=== PATIENT | female | born 1995 | race African-American/Black ===

== ENCOUNTER 2018-12-05 19:50 | Observation (INO) | payer SELFPAY ==
[~2018-12-05] VITALS: Ht 162.6 cm; Wt 53.5 kg
[2018-12-05] MEDS ORDERED: LACTATED RINGERS 1,000 ML IV SCH ×2 (21:05→23:30)
[2018-12-05 21:25] LABS: CLARITY URINE CLOUDY (CLEAR); COLOR URINE YELLOW (YELLOW); KETONES URINE 1+ (NEGATIVE); LEUKOCYTE ESTERASE URINE 3+ (NEGATIVE); NITRITE URINE POSITIVE (NEGATIVE); OCCULT BLOOD URINE TRACE (NEGATIVE); PH URINE 7.5 (4.5-8.0); PROTEIN URINE 1+ (NEGATIVE); SPECIFIC GRAVITY URINE 1.013 (1.005-1.030)
[2018-12-05 21:44] LABS: *BARBITURATES SCREEN URINE NEGATIVE (NEGATIVE); *COCAINE SCREEN URINE NEGATIVE (NEGATIVE); METHADONE URINE SCREEN NEGATIVE (NEGATIVE); OPIATES URINE SCREEN NEGATIVE (NEGATIVE); PHENCYCLIDINE URINE SCREEN NEGATIVE (NEGATIVE)
[2018-12-05 21:46] LABS: *BENZODIAZEPINES SCREEN URINE NEGATIVE (NEGATIVE)
[2018-12-05 21:49] LABS: *AMPHETAMINES SCREEN URINE PRESUMTIVE POSITIVE (NEGATIVE)
[2018-12-05 21:50] LABS: CANNABINOID URINE SCREEN PRESUMTIVE POSITIVE (NEGATIVE)
[2018-12-05 21:56] LABS: BASOPHILS % 0.3 % (0.0-2.0); EOSINOPHILS % 0.2 % (0.0-5.0); HEMATOCRIT. 24.4 % (36.0-48.0); HEMOGLOBIN. 7.5 g/dL (12.0-16.0); LYMPHOCYTES % 8.9 % (20.0-50.0); MEAN CORPUSCULAR VOLUME 61.9 fL (81.0-99.0); MEAN PLATELET VOLUME 7.1 fl (7.4-10.4); MONOCYTES % 4.8 % (2.0-8.0); NEUTROPHILS % 85.8 % (40.0-76.0); PLATELET 540 x1000/uL (130-400); RED BLOOD CELL COUNT 3.94 mill/uL (4.2-5.4); RED CELL DISTRIBUTION WIDTH 18.8 % (11.6-14.6)
[2018-12-05] MEDS ORDERED: FERR325T6 MT (21:59)
[2018-12-05] MEDS ORDERED: PNV1TABL50 MT (21:59)
[2018-12-05 22:00] LABS: CHLORIDE 102 mEq/L (98-107)
[2018-12-05 22:14] LABS: PLATELET ESTIMATE MARKEDLY INCREASED
[2018-12-05] MEDS ORDERED: CEFAZOLIN 2,000 MG in DEXT 5% WATER 100 ML IV SCH (23:00)
[2018-12-05] MEDS ORDERED: ACETAMINOPHEN 500MG TABLET PO SCH (23:45)
[2018-12-11 04:08] LABS: AMPHETAMINE CONF URINE Positive (.); CANNABINOID CONFIRMATION URINE Positive (.)
== END 2018-12-06 01:30 | disposition home or self-care (01) ==
LOC: 8 EST LDRP 19:50
PROVIDERS: ADMIT Obstetrics & Gynecology; ATTEND Obstetrics & Gynecology
DX: O26.893 Other specified pregnancy related conditions, third trimester (principal); M54.9 Dorsalgia, unspecified; Z3A.38 38 weeks gestation of pregnancy
CPT/HCPCS: 36415; 80053; 80305; 80307; 80349; 81003; 85025; 87077; 87086; 87186; 96365; 99281; G0378; J0690; J7060; 96360; 96361

== ENCOUNTER 2019-02-28 06:51 | Inpatient (IN) | payer SELFPAY ==
[~2019-02-28] VITALS: Ht 162.6 cm; Wt 65.8 kg
[~2019-02-28 06:51] MED LIST: FERR325T6 MT; PNV1TABL50 MT
[2019-02-28] MEDS ORDERED: METHYLERGONOVINE MALEATE 0.2 MG/ML IM PRN (07:30)
[2019-02-28] MEDS ORDERED: BUTORPHANOL TARTRATE 2 MG/ML VIAL IV PRN (07:30)
[2019-02-28] MEDS ORDERED: CARBOPROST TROMETHAMINE 250 MCG/ML AMPUL IM PRN (07:30)
[2019-02-28] MEDS ORDERED: MISOPROSTOL 100MCG TABLET VG PRN (07:30)
[2019-02-28] MEDS ORDERED: LIDOCAINE HCL 1% 20ML VIAL (Pyxis) INJ INFIL PRN (07:30)
[2019-02-28] MEDS ORDERED: PROMETHAZINE HCL 25MG TABLET PO PRN (08:00)
[2019-02-28] MEDS: LACTATED RINGERS 1,000 ML IV SCH ×4 (08:10→22:28)
[2019-02-28 09:00] LABS: BASOPHILS % 0.3 % (0.0-2.0); EOSINOPHILS % 0.4 % (0.0-5.0); HEMATOCRIT. 22.5 % (36.0-48.0); INR 0.9; MEAN CORPUSCULAR HEMOGLOBIN 16.3 pg (28.0-32.0); MEAN CORPUSCULAR VOLUME 55.6 fL (81.0-99.0); MEAN PLATELET VOLUME 9.1 fl (7.4-10.4); MONOCYTES % 4.1 % (2.0-8.0); NEUTROPHILS % 73.2 % (40.0-76.0); PARTIAL THROMBOPLASTIN TIME 28.4 sec (23.4-31.0); PLATELET 411 x1000/uL (130-400); PROTHROMBIN TIME 9.8 sec (9.6-11.0); RED BLOOD CELL COUNT 4.04 mill/uL (4.2-5.4); RED CELL DISTRIBUTION WIDTH 19.4 % (11.6-14.6)
[2019-02-28 09:09] LABS: HEMOGLOBIN. 6.6 g/dL (12.0-16.0)
[2019-02-28] MEDS ORDERED: ROPIVACAINE HCL/PF EPIDURAL 200 ML EPI SCH (09:15)
[2019-02-28] MEDS ORDERED: FENTANYL CITRATE/PF 50MCG/ML 2ML VIAL ONE ×2 (09:22→18:24)
[2019-02-28 10:11] LABS: CLARITY URINE CLEAR (CLEAR); COLOR URINE YELLOW (YELLOW); KETONES URINE NEGATIVE (NEGATIVE); LEUKOCYTE ESTERASE URINE 1+ (NEGATIVE); NITRITE URINE NEGATIVE (NEGATIVE); OCCULT BLOOD URINE NEGATIVE (NEGATIVE); PROTEIN URINE TRACE (NEGATIVE); SPECIFIC GRAVITY URINE 1.011 (1.005-1.030); UROBILINOGEN URINE 0.2 E.U./dL (0.2-1.0)
[2019-02-28 10:23] LABS: HEPATITIS B SURFACE ANTIGEN NEGATIVE
[2019-02-28 10:49] LABS: *AMPHETAMINES SCREEN URINE NEGATIVE (NEGATIVE); *BARBITURATES SCREEN URINE NEGATIVE (NEGATIVE); *BENZODIAZEPINES SCREEN URINE NEGATIVE (NEGATIVE); *COCAINE SCREEN URINE NEGATIVE (NEGATIVE); METHADONE URINE SCREEN NEGATIVE (NEGATIVE); OPIATES URINE SCREEN NEGATIVE (NEGATIVE)
[2019-02-28 10:50] LABS: CANNABINOID URINE SCREEN NEGATIVE (NEGATIVE); PHENCYCLIDINE URINE SCREEN NEGATIVE (NEGATIVE)
[2019-02-28] MEDS: DEXT 5%/LR + PITOCIN 20UNITS/L 1,000 ML IV PRN (10:50)
[2019-02-28] MEDS ORDERED: LIDOCAINE HCL 2%/EPINEPHRINE 1:100,000 20 ML VIAL INFIL ONE (12:36)
[2019-02-28 13:31] LABS: BASOPHILS % 0.3 % (0.0-2.0); HEMATOCRIT. 26.4 % (36.0-48.0); HEMOGLOBIN. 7.6 g/dL (12.0-16.0); LYMPHOCYTES % 10.7 % (20.0-50.0); MEAN CORPUSCULAR HEMOGLOBIN 16.1 pg (28.0-32.0); MEAN CORPUSCULAR VOLUME 55.9 fL (81.0-99.0); MEAN PLATELET VOLUME 8.7 fl (7.4-10.4); MONOCYTES % 2.3 % (2.0-8.0); NEUTROPHILS % 86.7 % (40.0-76.0); PLATELET 482 x1000/uL (130-400); RED BLOOD CELL COUNT 4.71 mill/uL (4.2-5.4); RED CELL DISTRIBUTION WIDTH 19.7 % (11.6-14.6)
[2019-02-28 13:37] LABS: CHLORIDE 105 mEq/L (98-107)
[2019-02-28 13:42] LABS: PLATELET ESTIMATE SLIGHTLY INCREASED
[2019-02-28 13:57] LABS: D-DIMER 3.18 mg/L FEU (<0.50); PARTIAL THROMBOPLASTIN TIME 26.8 sec (23.4-31.0)
[2019-02-28] MEDS ORDERED: PENICILLIN G BENZATHINE 1,200,000 UNITS/2ML SYR IM NR (18:00)
[2019-02-28] MEDS ORDERED: LIDOCAINE HCL/PF 1% 10 MG/ML 5ML VIAL ONE (18:24)
[2019-02-28] MEDS ORDERED: ROPIVACAINE HCL/PF EPIDURAL 200 ML EPI ONE (22:14)
[2019-02-28 22:27] LABS: MEAN CORPUSCULAR HEMOGLOBIN 16.2 pg (28.0-32.0); MEAN CORPUSCULAR VOLUME 55.3 fL (81.0-99.0); PLATELET 396 x1000/uL (130-400); RED BLOOD CELL COUNT 3.83 mill/uL (4.2-5.4); RED CELL DISTRIBUTION WIDTH 19.4 % (11.6-14.6)
[2019-02-28 22:34] LABS: HEMOGLOBIN 6.2 g/dL (12.0-16.0)
[2019-02-28 22:35] LABS: HEMATOCRIT 21.2 % (36.0-48.0)
[2019-02-28] MEDS ORDERED: DEXT 5%/LR + PITOCIN 20UNITS/L 1,000 ML IV SCH (23:36)
[2019-02-28] MEDS ORDERED: RHO(D) IMMUNE GLOBULIN 300 MCG/SYR IM PRN (23:45)
[2019-02-28] MEDS ORDERED: IBUPROFEN 400MG TABLET PO PRN (23:45)
[2019-03-01] VITALS (15 sets, daily range): BP systolic 133–157; BP diastolic 68–91
[2019-03-01] MEDS: DEXT 5%/LR + PITOCIN 20UNITS/L 1,000 ML IV PRN (00:21)
[2019-03-01] MEDS: IBUPROFEN 800MG TABLET PO PRN ×2 (00:59→16:20)
[2019-03-01] MEDS ORDERED: MAGNESIUM 2 G PREMIX 50 ML IV NR (01:30)
[2019-03-01] MEDS ORDERED: MAGNESIUM 20 G PREMIX (L & D) 500 ML IV SCH (02:30)
[2019-03-01 07:23] LABS: BASOPHILS % 0.4 % (0.0-2.0); LYMPHOCYTES % 11.2 % (20.0-50.0); MEAN CORPUSCULAR HEMOGLOBIN 16.2 pg (28.0-32.0); MEAN CORPUSCULAR VOLUME 54.8 fL (81.0-99.0); MEAN PLATELET VOLUME 8.6 fl (7.4-10.4); MONOCYTES % 4.9 % (2.0-8.0); NEUTROPHILS % 83.5 % (40.0-76.0); PLATELET 392 x1000/uL (130-400); RED BLOOD CELL COUNT 3.75 mill/uL (4.2-5.4); RED CELL DISTRIBUTION WIDTH 19.4 % (11.6-14.6)
[2019-03-01 07:55] LABS: HEMATOCRIT. 20.5 % (36.0-48.0)
[2019-03-01] MEDS ORDERED: PENICILLIN G BENZATHINE 2,400,000 UNITS/4ML SYR IM ONE (11:00)
[2019-03-01] MEDS ORDERED: MAGNESIUM SULFATE 20 GM in DEXT 5% WATER 460 ML IV SCH (22:00)
[2019-03-02] VITALS: BP 145/85
[2019-03-02] MEDS: IBUPROFEN 800MG TABLET PO PRN (00:23)
[2019-03-02 05:45] VITALS: BP 140/81
[2019-03-02 10:00] VITALS: BP 135/80
[2019-03-02 10:33] LABS: BASOPHILS % 0.7 % (0.0-2.0); EOSINOPHILS % 0.7 % (0.0-5.0); HEMATOCRIT. 25.4 % (36.0-48.0); HEMOGLOBIN. 7.9 g/dL (12.0-16.0); LYMPHOCYTES % 18.9 % (20.0-50.0); MEAN CORPUSCULAR HEMOGLOBIN 19.5 pg (28.0-32.0); MEAN CORPUSCULAR VOLUME 62.7 fL (81.0-99.0); MEAN PLATELET VOLUME 8.6 fl (7.4-10.4); MONOCYTES % 4.6 % (2.0-8.0); NEUTROPHILS % 75.1 % (40.0-76.0); PLATELET 384 x1000/uL (130-400); RED BLOOD CELL COUNT 4.05 mill/uL (4.2-5.4)
[2019-03-02] MEDS ORDERED: tylenol (18:54)
== END 2019-03-02 11:20 | disposition home or self-care (01) | DRG 560 ==
LOC: OBSVTOIN 06:51 → 8 EST LDRP 06:51
PROVIDERS: ADMIT Obstetrics & Gynecology; ATTEND Obstetrics & Gynecology
PROC: 10D07Z6 Extraction of Products of Conception, Vacuum, Via Natural or Artificial Opening (ICD-10-PCS; principal; 2019-02-28)
PROC: 3E0R3BZ Introduction of Anesthetic Agent into Spinal Canal, Percutaneous Approach (ICD-10-PCS; 2019-02-28)
PROC: 00HU33Z Insertion of Infusion Device into Spinal Canal, Percutaneous Approach (ICD-10-PCS; 2019-02-28)
PROC: 0U7C7ZZ Dilation of Cervix, Via Natural or Artificial Opening (ICD-10-PCS; 2019-02-28)
PROC: 30233N1 Transfusion of Nonautologous Red Blood Cells into Peripheral Vein, Percutaneous Approach (ICD-10-PCS; 2019-03-01)
PROC: 3E0234Z Introduction of Serum, Toxoid and Vaccine into Muscle, Percutaneous Approach (ICD-10-PCS; 2019-03-02)
DX: O36.4XX0 Maternal care for intrauterine death, not applicable or unspecified (principal); Z37.1 Single stillbirth; D64.9 Anemia, unspecified; O77.0 Labor and delivery complicated by meconium in amniotic fluid; Z3A.39 39 weeks gestation of pregnancy; O90.81 Anemia of the puerperium
CPT/HCPCS: 36415; 76805; 80053; 80305; 81003; 83735; 84550; 85025; 85027; 85379; 85384; 86592; 86593; 86703; 86762; 86780; 86850; 86886; 86900; 86920; 87077; 87186; 87340; 88307; 90384; 99281; G0378; J0561; J0595; J2210; J2590; J2795; J3010; J3475; J3490; J7060; J7120; P9016; A4315

== ENCOUNTER 2019-03-02 18:05 | Emergency (ER) | payer SELFPAY ==
[~2019-03-02] VITALS: Ht 162.6 cm; Wt 63.0 kg
[2019-03-02] MEDS ORDERED: tylenol (18:54)
[2019-03-02 22:42] LABS: BASOPHILS % 0.7 % (0.0-2.0); EOSINOPHILS % 0.4 % (0.0-5.0); HEMATOCRIT. 28.4 % (36.0-48.0); HEMOGLOBIN. 8.7 g/dL (12.0-16.0); LYMPHOCYTES % 13.8 % (20.0-50.0); MEAN CORPUSCULAR HEMOGLOBIN 19.2 pg (28.0-32.0); MEAN CORPUSCULAR VOLUME 62.6 fL (81.0-99.0); MONOCYTES % 3.3 % (2.0-8.0); NEUTROPHILS % 81.8 % (40.0-76.0); PLATELET 476 x1000/uL (130-400); RED BLOOD CELL COUNT 4.53 mill/uL (4.2-5.4); RED CELL DISTRIBUTION WIDTH 29.6 % (11.6-14.6)
[2019-03-02] MEDS ORDERED: KETOROLAC 30MG/ML VIAL IV ONE (22:45)
[2019-03-02 22:51] LABS: CHLORIDE 109 mEq/L (98-107)
[2019-03-02 22:52] LABS: CLARITY URINE CLEAR (CLEAR); COLOR URINE YELLOW (YELLOW); KETONES URINE NEGATIVE (NEGATIVE); LEUKOCYTE ESTERASE URINE 3+ (NEGATIVE); NITRITE URINE NEGATIVE (NEGATIVE); OCCULT BLOOD URINE 2+ (NEGATIVE); PROTEIN URINE NEGATIVE (NEGATIVE); SPECIFIC GRAVITY URINE 1.012 (1.005-1.030); UROBILINOGEN URINE 0.2 E.U./dL (0.2-1.0)
[2019-03-02 23:06] LABS: PLATELET ESTIMATE INCREASED
[2019-03-02] MEDS ORDERED: CEFTRIAXONE 1 G PREMIX 50 ML IV ONE (23:30)
[2019-03-03 02:40] VITALS: BP 160/70
== END 2019-03-03 03:10 | disposition home or self-care (01) ==
LOC: ER 18:05
DX: R10.2 Pelvic and perineal pain (principal)
CPT/HCPCS: 36415; 76856; 80053; 81003; 85025; 85610; 96365; 96375; 99284; J0696; J1885; Z7610

== ENCOUNTER 2019-09-14 10:13 | Emergency (ER) | payer MEDICAID ==
[~2019-09-14] VITALS: Ht 162.6 cm; Wt 68.0 kg
[~2019-09-14 10:13] MED LIST changes: -FERR325T6 MT; -PNV1TABL50 MT; +tylenol
[2019-09-14 11:24] LABS: CLARITY URINE CLOUDY (CLEAR); COLOR URINE YELLOW (YELLOW); KETONES URINE NEGATIVE (NEGATIVE); LEUKOCYTE ESTERASE URINE 1+ (NEGATIVE); NITRITE URINE NEGATIVE (NEGATIVE); OCCULT BLOOD URINE NEGATIVE (NEGATIVE); PROTEIN URINE TRACE (NEGATIVE); SPECIFIC GRAVITY URINE 1.027 (1.005-1.030); UROBILINOGEN URINE 0.2 E.U./dL (0.2-1.0)
[2019-09-14 11:39] LABS: *BARBITURATES SCREEN URINE NEGATIVE (NEGATIVE); *BENZODIAZEPINES SCREEN URINE NEGATIVE (NEGATIVE); *COCAINE SCREEN URINE NEGATIVE (NEGATIVE); METHADONE URINE SCREEN NEGATIVE (NEGATIVE); OPIATES URINE SCREEN NEGATIVE (NEGATIVE); PHENCYCLIDINE URINE SCREEN NEGATIVE (NEGATIVE)
[2019-09-14 11:40] LABS: CANNABINOID URINE SCREEN NEGATIVE (NEGATIVE)
[2019-09-14 11:41] LABS: *AMPHETAMINES SCREEN URINE PRESUMTIVE POSITIVE (NEGATIVE)
[2019-09-14 15:32] VITALS: BP 90/57
== END 2019-09-14 15:50 | disposition home or self-care (01) ==
LOC: ER 10:13
DX: O26.892 Other specified pregnancy related conditions, second trimester (principal); S60.221A Contusion of right hand, initial encounter; Y08.89XA Assault by other specified means, initial encounter; Y93.89 Activity, other specified; Y92.89 Other specified places as the place of occurrence of the external cause; Y99.8 Other external cause status; Z3A.14 14 weeks gestation of pregnancy
CPT/HCPCS: 73130; 76801; 80305; 81003; 99285

== ENCOUNTER 2020-02-28 09:30 | Inpatient (IN) | payer MEDICAID ==
[~2020-02-28] VITALS: Ht 162.6 cm; Wt 56.7 kg
[2020-02-28] MEDS ORDERED: RHO(D) IMMUNE GLOBULIN 300 MCG/SYR IM ONE (10:30)
[2020-02-28] MEDS: LACTATED RINGERS 1,000 ML IV SCH ×3 (11:16→22:35)
[2020-02-28 11:29] LABS: BASOPHILS % 1.2 % (0.0-2.0); EOSINOPHILS % 2.1 % (0.0-5.0); HEMOGLOBIN. 8.4 g/dL (12.0-16.0); LYMPHOCYTES % 19.1 % (20.0-50.0); MEAN CORPUSCULAR VOLUME 61.2 fL (81.0-99.0); MEAN PLATELET VOLUME 8.8 fl (7.4-10.4); MONOCYTES % 4.7 % (2.0-8.0); NEUTROPHILS % 72.9 % (40.0-76.0); PLATELET 313 x1000/uL (130-400); RED BLOOD CELL COUNT 4.42 mill/uL (4.2-5.4); RED CELL DISTRIBUTION WIDTH 18.4 % (11.6-14.6)
[2020-02-28 11:40] LABS: PARTIAL THROMBOPLASTIN TIME 25.9 sec (23.4-31.0); PROTHROMBIN TIME 10.2 sec (9.6-11.0)
[2020-02-28 11:55] LABS: PLATELET ESTIMATE NORMAL
[2020-02-28 12:38] LABS: HEPATITIS B SURFACE ANTIGEN NEGATIVE
[2020-02-28] MEDS ORDERED: BUTORPHANOL TARTRATE 2 MG/ML VIAL IV PRN (13:00)
[2020-02-28] MEDS ORDERED: LIDOCAINE HCL 1% 20ML VIAL (Pyxis) INJ INFIL SCH (13:00)
[2020-02-28] MEDS ORDERED: MISOPROSTOL 100MCG TABLET RC SCH (13:00)
[2020-02-28] MEDS ORDERED: LACTATED RINGERS 1,000 ML IV SCH (13:00)
[2020-02-28] MEDS ORDERED: DEXT 5%/LACTATED RINGERS 1,000 ML IV SCH (13:00)
[2020-02-28] MEDS ORDERED: METHYLERGONOVINE MALEATE 0.2 MG/ML IM PRN (13:00)
[2020-02-28] MEDS ORDERED: DEXT 5%/LR + PITOCIN 20UNITS/L 1,000 ML IV SCH (13:00)
[2020-02-28] MEDS ORDERED: NALOXONE HCL 0.4 MG/ML 1ML VIAL IM PRN (13:00)
[2020-02-28] MEDS ORDERED: MINERAL OIL 30ML BOTTLE PO ONE (13:30)
[2020-02-28] MEDS ORDERED: PENICILLIN G POTASSIUM 5 MMU in DEXT 5% WATER 100 ML IV SCH (13:30)
[2020-02-28] MEDS ORDERED: ROPIVACAINE HCL/PF EPIDURAL 200 ML EPI ONE (16:00)
[2020-02-28] MEDS ORDERED: ROPIVACAINE HCL/PF 100ML 100 ML IR SCH (16:00)
[2020-02-28 16:53] LABS: CLARITY URINE CLEAR (CLEAR); COLOR URINE YELLOW (YELLOW); KETONES URINE NEGATIVE (NEGATIVE); LEUKOCYTE ESTERASE URINE NEGATIVE (NEGATIVE); NITRITE URINE NEGATIVE (NEGATIVE); OCCULT BLOOD URINE 1+ (NEGATIVE); PH URINE 6.5 (4.5-8.0); PROTEIN URINE NEGATIVE (NEGATIVE); SPECIFIC GRAVITY URINE 1.016 (1.005-1.030); UROBILINOGEN URINE 0.2 E.U./dL (0.2-1.0)
[2020-02-28 17:08] LABS: *BARBITURATES SCREEN URINE NEGATIVE (NEGATIVE); *BENZODIAZEPINES SCREEN URINE NEGATIVE (NEGATIVE); *COCAINE SCREEN URINE NEGATIVE (NEGATIVE)
[2020-02-28 17:09] LABS: CANNABINOID URINE SCREEN NEGATIVE (NEGATIVE); METHADONE URINE SCREEN NEGATIVE (NEGATIVE); OPIATES URINE SCREEN NEGATIVE (NEGATIVE); PHENCYCLIDINE URINE SCREEN NEGATIVE (NEGATIVE)
[2020-02-28 17:13] LABS: *AMPHETAMINES SCREEN URINE PRESUMTIVE POSITIVE (NEGATIVE)
[2020-02-28] MEDS ORDERED: PENICILLIN G POTASSIUM 2.5 MMU in DEXTROSE 5% WATER 50 ML IV SCH (18:00)
[2020-02-29] MEDS ORDERED: METHYLERGONOVINE MALEATE 0.2 MG/ML IM PRN (01:15)
[2020-02-29] MEDS ORDERED: DIPHENHYDRAMINE 25MG CAPSULE PO PRN (01:15)
[2020-02-29] MEDS ORDERED: IBUPROFEN 400MG TABLET PO PRN (01:15)
[2020-02-29] MEDS ORDERED: RHO(D) IMMUNE GLOBULIN 300 MCG/SYR IM PRN (01:15)
[2020-02-29 01:30] VITALS: BP 136/61
[2020-02-29] MEDS ORDERED: DEXT 5%/LR + PITOCIN 20UNITS/L 1,000 ML IV SCH (02:00)
[2020-02-29] MEDS: IBUPROFEN 800MG TABLET PO PRN ×2 (02:33→12:30)
[2020-02-29 04:00] VITALS: BP 130/75
[2020-02-29 08:45] VITALS: BP 126/64
[2020-02-29 09:31] LABS: BASOPHILS % 0.3 % (0.0-2.0); EOSINOPHILS % 0.6 % (0.0-5.0); HEMATOCRIT. 23.3 % (36.0-48.0); HEMOGLOBIN. 7.2 g/dL (12.0-16.0); LYMPHOCYTES % 11.2 % (20.0-50.0); MEAN CORPUSCULAR HEMOGLOBIN 18.8 pg (28.0-32.0); MEAN CORPUSCULAR VOLUME 61.1 fL (81.0-99.0); MEAN PLATELET VOLUME 8.5 fl (7.4-10.4); MONOCYTES % 3.6 % (2.0-8.0); NEUTROPHILS % 84.3 % (40.0-76.0); PLATELET 221 x1000/uL (130-400); RED BLOOD CELL COUNT 3.82 mill/uL (4.2-5.4); RED CELL DISTRIBUTION WIDTH 18.1 % (11.6-14.6)
[2020-02-29] MEDS: PRENATAL VIT/FE FUMARATE/FA TABLET PO SCH (12:31)
[2020-02-29 17:00] VITALS: BP 121/75
[2020-02-29 19:30] VITALS: BP 128/80
[2020-02-29 23:45] VITALS: BP 126/80
[2020-03-01 05:54] VITALS: BP 126/78
[2020-03-01 08:00] VITALS: BP 125/78
[2020-03-01] MEDS ORDERED: INFLUENZA VACCINE 05/PF 0.5 ML VIAL IM ONE (08:00)
[2020-03-01] MEDS: PRENATAL VIT/FE FUMARATE/FA TABLET PO SCH (09:00)
[2020-03-01] MEDS ORDERED: TETANUS, DIPHTHERIA, PERTUSSIS VAC/PF 0.5ML (>7YR OLD) IM ONE (09:00)
[2020-03-01 10:02] LABS: BASOPHILS % 0.5 % (0.0-2.0); EOSINOPHILS % 1.9 % (0.0-5.0); HEMATOCRIT. 21.4 % (36.0-48.0); LYMPHOCYTES % 20.8 % (20.0-50.0); MEAN CORPUSCULAR VOLUME 61.6 fL (81.0-99.0); MEAN PLATELET VOLUME 9.1 fl (7.4-10.4); MONOCYTES % 2.9 % (2.0-8.0); NEUTROPHILS % 73.9 % (40.0-76.0); PLATELET 233 x1000/uL (130-400); RED BLOOD CELL COUNT 3.47 mill/uL (4.2-5.4); RED CELL DISTRIBUTION WIDTH 18.5 % (11.6-14.6)
[2020-03-01] MEDS: IBUPROFEN 800MG TABLET PO PRN ×2 (10:17→15:22)
[2020-03-01 10:21] LABS: HEMOGLOBIN. 6.6 g/dL (12.0-16.0)
[2020-03-01] MEDS ORDERED: PENICILLIN G BENZATHINE 2,400,000 UNITS/4ML SYR IM NR (13:00)
[2020-03-01 17:00] VITALS: BP 121/67
[2020-03-01 20:00] VITALS: BP 120/77
[2020-03-02] MEDS: IBUPROFEN 800MG TABLET PO PRN (02:23)
[2020-03-02 03:30] VITALS: BP 121/82
[2020-03-02 09:00] VITALS: BP 113/61
[2020-03-05 04:07] LABS: AMPHETAMINE CONF URINE Positive (.)
== END 2020-03-02 12:30 | disposition home or self-care (01) | DRG 560 ==
LOC: 8 EST LDRP 09:30 → OBSVTOIN 09:30 → 8EST 02-29 01:30
PROVIDERS: ADMIT Obstetrics & Gynecology; ATTEND Obstetrics & Gynecology
PROC: 10E0XZZ Delivery of Products of Conception, External Approach (ICD-10-PCS; principal; 2020-02-28)
PROC: 3E0R3BZ Introduction of Anesthetic Agent into Spinal Canal, Percutaneous Approach (ICD-10-PCS; 2020-02-28)
PROC: 00HU33Z Insertion of Infusion Device into Spinal Canal, Percutaneous Approach (ICD-10-PCS; 2020-02-28)
DX: O69.81X0 Labor and delivery complicated by cord around neck, without compression, not applicable or unspecified (principal); O77.0 Labor and delivery complicated by meconium in amniotic fluid; D62 Acute posthemorrhagic anemia; O99.02 Anemia complicating childbirth; Z3A.37 37 weeks gestation of pregnancy; Z37.0 Single live birth
CPT/HCPCS: 36415; 76805; 76818; 80305; 80307; 81003; 85025; 86592; 86593; 86703; 86762; 86780; 86850; 86900; 87340; 90686; 90715; 99281; G0378; J0561; J0595; J2210; J2540; J2590; J2795; J7060; J7120; J7121; A4315

== ENCOUNTER 2021-05-09 10:58 | Emergency (ER) | payer MEDICAID, OTHER ==
[~2021-05-09] VITALS: Ht 167.6 cm; Wt 59.0 kg
[2021-05-09 10:59] VITALS: BP 128/86
[2021-05-09] MEDS ORDERED: SODIUM CHLORIDE 0.9% 1,000 ML IV ONE (13:00)
[2021-05-09 14:37] LABS: EOSINOPHILS % 0.9 % (0.0-5.0); HEMATOCRIT. 34.9 % (36.0-48.0); LYMPHOCYTES % 27.8 % (20.0-50.0); MEAN CORPUSCULAR HEMOGLOBIN 20.8 pg (28.0-32.0); MEAN CORPUSCULAR VOLUME 66.1 fL (81.0-99.0); MEAN PLATELET VOLUME 7.9 fl (7.4-10.4); MONOCYTES % 5.3 % (2.0-8.0); PLATELET 560 x1000/uL (130-400); RED BLOOD CELL COUNT 5.27 mill/uL (4.2-5.4); RED CELL DISTRIBUTION WIDTH 17.9 % (11.6-14.6)
[2021-05-09 14:39] LABS: CHLORIDE 106 mEq/L (98-107)
[2021-05-09 14:43] LABS: ETHANOL BLOOD < 10 mg/dL; HCG SCREEN NEGATIVE
[2021-05-09 14:58] LABS: PLATELET ESTIMATE INCREASED
== END 2021-05-09 16:36 | disposition home or self-care (01) ==
LOC: ER 10:58
DX: F19.988 Other psychoactive substance use, unspecified with other psychoactive substance-induced disorder (principal); R42 Dizziness and giddiness; R53.1 Weakness; D64.9 Anemia, unspecified; Z71.51 Drug abuse counseling and surveillance of drug abuser
CPT/HCPCS: 36415; 70450; 80053; 80320; 83690; 84703; 85025; 96360; 96361; 99284; J7030; G0480

== ENCOUNTER 2021-06-27 13:35 | Emergency (ER) | payer MEDICAID, OTHER ==
[~2021-06-27] VITALS: Ht 162.6 cm; Wt 47.0 kg
[2021-06-27 13:49] VITALS: BP 107/67
[2021-06-27] MEDS ORDERED: ACETAMINOPHEN 325MG TABLET PO ONE (14:30)
== END 2021-06-27 16:08 | disposition home or self-care (01) ==
LOC: ER 13:40
DX: S06.899A Other specified intracranial injury with loss of consciousness of unspecified duration, initial encounter (principal); H92.03 Otalgia, bilateral; Y04.8XXA Assault by other bodily force, initial encounter; Y93.89 Activity, other specified; Y92.239 Unspecified place in hospital as the place of occurrence of the external cause
CPT/HCPCS: 99284

== ENCOUNTER 2021-09-20 14:50 | Emergency (ER) | payer OTHER ==
[~2021-09-20] VITALS: Ht 162.6 cm; Wt 51.0 kg
[2021-09-20 14:54] VITALS: BP 97/56
[2021-09-20] MEDS ORDERED: SODIUM CHLORIDE 0.9% 1,000 ML IV ONE (15:00)
[2021-09-20] MEDS ORDERED: ONDANSETRON HCL 4MG/2ML INJ IV ONE (15:00)
[2021-09-20 16:06] LABS: HEMATOCRIT. 25.2 % (36.0-48.0); HEMOGLOBIN. 8.1 g/dL (12.0-16.0); MEAN CORPUSCULAR VOLUME 65.3 fL (81.0-99.0); MEAN PLATELET VOLUME 8.2 fl (7.4-10.4); PLATELET 287 x1000/uL (130-400); RED BLOOD CELL COUNT 3.86 mill/uL (4.2-5.4)
[2021-09-20 16:08] LABS: CHLORIDE 99 mEq/L (98-107)
[2021-09-20 16:34] LABS: B-HCG QUANTITATIVE 64508 mIU/mL (<3)
[2021-09-20 19:29] LABS: PLATELET ESTIMATE NORMAL
[2021-09-20 21:34] LABS: CLARITY URINE CLEAR (CLEAR); COLOR URINE YELLOW (YELLOW); KETONES URINE 2+ (NEGATIVE); LEUKOCYTE ESTERASE URINE 1+ (NEGATIVE); NITRITE URINE NEGATIVE (NEGATIVE); OCCULT BLOOD URINE 2+ (NEGATIVE); PROTEIN URINE NEGATIVE (NEGATIVE); SPECIFIC GRAVITY URINE 1.011 (1.005-1.030)
[2021-09-20 21:49] LABS: *BARBITURATES SCREEN URINE NEGATIVE (NEGATIVE); *BENZODIAZEPINES SCREEN URINE NEGATIVE (NEGATIVE); *COCAINE SCREEN URINE NEGATIVE (NEGATIVE); METHADONE URINE SCREEN NEGATIVE (NEGATIVE); OPIATES URINE SCREEN NEGATIVE (NEGATIVE); PHENCYCLIDINE URINE SCREEN NEGATIVE (NEGATIVE)
[2021-09-20 21:51] LABS: *AMPHETAMINES SCREEN URINE PRESUMTIVE POSITIVE (NEGATIVE); CANNABINOID URINE SCREEN PRESUMTIVE POSITIVE (NEGATIVE)
[2021-09-20] MEDS ORDERED: CEPH500C2 MT (22:20)
== END 2021-09-20 22:30 | disposition home or self-care (01) ==
LOC: ER 14:53
DX: O23.31 Infections of other parts of urinary tract in pregnancy, first trimester (principal); O20.0 Threatened abortion; Z3A.13 13 weeks gestation of pregnancy
CPT/HCPCS: 36415; 76801; 80053; 80305; 81003; 83690; 84702; 85025; 86850; 86900; 86901; 90384; 96361; 96374; 99285; J2405; J2791